=== PATIENT | male | born 1965 | race Caucasian/White ===

== ENCOUNTER 2022-06-21 06:02 | Day surgery (SDC) | payer OTHER ==
[~2022-06-21] VITALS: Ht 170.2 cm; Wt 52.2 kg
[~2022-06-21 06:02] MED LIST: SODIUM CHLORIDE 0.9% 1,000 ML IV ONE
[2022-06-21] MEDS ORDERED: LIDOCAINE/PF 2% 5 ML SYRINGE IVP ONE (06:03)
[2022-06-21] MEDS ORDERED: PROPOFOL 1% 20 ML VIAL IVP ONE (06:03)
[2022-06-21] MEDS ORDERED: METF-81 PO (06:45)
[2022-06-21] MEDS ORDERED: EMPA25TA3 PO (06:46)
[2022-06-21] MEDS ORDERED: METO25 PO (06:47)
[2022-06-21 07:35] LABS: GLUCOMETER DEV NAME(LOC) SDS.; GLUCOSE,POINT OF CARE 100 MG/DL (70-110)
== END 2022-06-21 10:00 | disposition still patient (30) ==
LOC: SURGERY 06:02 → EDSEX 08:15 → SURGERY 10:00
PROVIDERS: ATTEND Surgery
DX: K62.89 Other specified diseases of anus and rectum (principal); Z79.899 Other long term (current) drug therapy; I25.10 Atherosclerotic heart disease of native coronary artery without angina pectoris; E11.9 Type 2 diabetes mellitus without complications; C20 Malignant neoplasm of rectum; Z86.73 Personal history of transient ischemic attack (TIA), and cerebral infarction without residual deficits
CPT/HCPCS: 45330; 82962; J2704; J3490